=== PATIENT | male | born 1940 | race Caucasian/White ===

== ENCOUNTER → 2016-10-04 10:48 | Outpatient (CLI) | payer MEDICARE | END | disposition home or self-care (01) | LOC: D.CT 10:48 | DX: R31.29 Other microscopic hematuria (principal); R10.9 Unspecified abdominal pain ==

== ENCOUNTER 2016-11-17 05:50 | Day surgery (SDC) | payer MEDICARE | END 2016-11-17 09:30 | disposition home or self-care (01) | LOC: D.OPS 05:50 | DX: R31.21 Asymptomatic microscopic hematuria (principal); F17.200 Nicotine dependence, unspecified, uncomplicated; I10 Essential (primary) hypertension; K21.9 Gastro-esophageal reflux disease without esophagitis; N40.0 Benign prostatic hyperplasia without lower urinary tract symptoms; Z01.812 Encounter for preprocedural laboratory examination ==

== ENCOUNTER → 2017-03-15 07:18 | Outpatient (CLI) | payer MEDICARE ==
[2016-11-17 06:14] VITALS: BMI 24.1
[~2017-03-15 07:18] MED LIST: BAYER CHEWABLE81 MG PO; HYTRIN5 MG PO; LISINOPRIL10 MG PO; OMEPRAZOLE20 M1 PO; ZOCOR80 MG PO
== END | disposition home or self-care (01) ==
LOC: D.CT 07:18
DX: R10.9 Unspecified abdominal pain (principal)